=== PATIENT | male | born 1965 | race Caucasian/White ===

== ENCOUNTER 2020-03-08 19:22 | Emergency (ER) | payer SELFPAY ==
[~2020-03-08] VITALS: Ht 177.8 cm; Wt 100.0 kg
[2020-03-08 19:57] VITALS: BP 112/73
[2020-03-08] MEDS ORDERED: CYCLOBENZAPRINE 10MG TABLET PO ONE (20:00)
[2020-03-08] MEDS ORDERED: KETOROLAC 30MG/ML VIAL IM ONE (20:00)
== END 2020-03-08 20:08 | disposition home or self-care (01) ==
LOC: ER 19:22
DX: M54.31 Sciatica, right side (principal); G89.29 Other chronic pain; M54.5 Low back pain; F17.210 Nicotine dependence, cigarettes, uncomplicated; Z98.1 Arthrodesis status
CPT/HCPCS: 96372; 99283; J1885

== ENCOUNTER 2020-12-01 07:19 | Emergency (ER) | payer BC ==
[~2020-12-01] VITALS: Ht 177.8 cm; Wt 95.0 kg
[2020-12-01 07:42] VITALS: BP 130/80
[2020-12-01] MEDS ORDERED: KETOROLAC 60MG/2ML VIAL IM ONE (08:00)
[2020-12-01] MEDS ORDERED: IBUP-2030 MT (09:20)
[2020-12-01] MEDS ORDERED: METH-773 MT (09:20)
== END 2020-12-01 09:12 | disposition home or self-care (01) ==
LOC: ER 07:19
DX: G89.29 Other chronic pain (principal); M54.5 Low back pain; Z98.890 Other specified postprocedural states
CPT/HCPCS: 72131; 96372; 99284; J1885

== ENCOUNTER 2023-01-02 14:41 | Emergency (ER) | payer BC ==
[~2023-01-02] VITALS: Ht 177.8 cm; Wt 88.4 kg
[~2023-01-02 14:41] MED LIST: IBUP-2030 MT; METH-773 MT
[2023-01-02 14:45] VITALS: BP 133/88
[2023-01-02] MEDS ORDERED: [UNRECOGNIZED DRUG - OTHER] TP (16:28)
== END 2023-01-02 17:02 | disposition home or self-care (01) ==
LOC: ER 14:41
DX: Z00.00 Encounter for general adult medical examination without abnormal findings (principal); Z98.890 Other specified postprocedural states
CPT/HCPCS: 99281; 99282